=== PATIENT | male | born 1975 | race African-American/Black ===

== ENCOUNTER 2017-10-10 17:38 | Emergency (ER) | payer OTHER, BC | END 2017-10-10 20:03 | disposition home or self-care (01) | LOC: ER 17:38 | DX: M25.511 Pain in right shoulder (principal); M25.512 Pain in left shoulder; R07.89 Other chest pain; V43.52XA Car driver injured in collision with other type car in traffic accident, initial encounter; Y93.I9 Activity, other involving external motion; Y92.410 Unspecified street and highway as the place of occurrence of the external cause; Y99.8 Other external cause status | CPT/HCPCS: 71020; 73030; 99284 ==

== ENCOUNTER → 2021-02-07 | Outpatient (CLI) | payer BC ==
[2017-10-10 18:06] VITALS: BP 156/86
[~2021-02-07] MED LIST: CYCL10TA2 PO; DICL50TA4 PO; OXYC1TAB15 PO
--- NOTE | 2021-02-07 12:00 | RAD ---
EXAM: Head and cervical spine CT without contrast. HISTORY: Headache. Nerve root impingement. TECHNIQUE: Computed tomographic images of the head and cervical spine were obtained without contrast. *One or more of the following individualized dose reduction techniques were utilized for this examina tion: 1. Automated exposure control. 2. Adjustment of the mA and/or kV according to patient size. 3. Use of iterative reconstruction technique. COMPARISON: None. FINDINGS: Head: There is no hemorrhage. There is no mass effect or midline shift. There is no hydrocephalus. Th e rosales-white matter differentiation pattern is intact. There is ossification along the anterior falx. The orbits are unremarkable. There is mild maxillary sinus mucosal thickening. The mastoid air cells are clear. There are suboccipital cardiotomy changes. The posterior arch of C1 has been resected. Th ere are low-lying cerebellar tonsils, favoring postoperative change for Chiari decompression. Cervical spine: There is no listhesis. The vertebral bodies are normal in height and the disc spaces are preserved. There is mild endplate remodeling and facet and uncovertebral arthropathy at multiple levels. This is associated with mild right foraminal stenosis C4-C5. No severe foraminal or central c anal stenosis is seen. The airways midline and widely patent. IMPRESSION: 1. No acute intracranial finding or evidence of acute cervical spine trauma. 2. Suboccipital craniotomy and posterior arch of C1 resection, possibly due to Chiari decompression g iven the presence of low lying cerebellar tonsils. Correlate with prior imaging and surgical history. 3. Minimal degenerative change involving the cervical spine, described above. There is associated mil d right foraminal stenosis at C4-C5. Electronically signed by: Betsy Bradshaw MD (02/07/2021 11:58 AM) [id number]
--- NOTE | 2021-02-07 12:45 | RAD ---
EXAM: Abdomen and pelvis CT without intravenous contrast. HISTORY: Flank pain. TECHNIQUE: Computed tomographic images of the abdomen and pelvis were obtained without contrast. Mult iplanar reformatting was performed. *One or more of the following individualized dose reduction techniques were utilized for this examina tion: 1. Automated exposure control. 2. Adjustment of the mA and/or kV according to patient size. 3. Use of iterative reconstruction technique. COMPARISON: None. FINDINGS: Evaluation of the lower thorax demonstrates no infiltrate or pleural effusion. No hepatic l esion is seen on this noncontrast exam. The gallbladder, pancreas, spleen and adrenal glands are unre markable. There is no hydronephrosis. There are multiple nonobstructing right renal stones measuring up to 3 mm . There is a 2 mm nonobstructing stone within the upper pole the left kidney. No solid or cystic angel l lesion is seen on this noncontrast exam. There is no appendicitis. There is no abnormal bowel wall thickening. The bladder and prostate are un remarkable. The aorta is normal in caliber. There is stranding within the root of mesentery and there are multiple enlarged mesenteric lymph nodes to left of midline. The largest of these lymph nodes me asures 2.1 cm in long axis. There is no suspicious osseous lesion. There are multiple degenerative changes throughout the spine, predominantly at the lumbosacral junction. IMPRESSION: 1. Right greater than left nephrolithiasis. There is no evidence of an obstructing stone or hydroneph rosis. 2. Mesenteric stranding and multiple enlarged mesenteric lymph nodes to left of midline. This can be seen with mesenteric adenitis and mesenteric panniculitis. This is not clearly within limits to sugge st underlying neoplasm. Electronically signed by: Betsy Bradshaw MD (02/07/2021 12:42 PM) [id number]
== END ==
LOC: CT 11:24
PROVIDERS: ATTEND Family Medicine
DX: G44.89 Other headache syndrome (principal); N20.0 Calculus of kidney; M47.812 Spondylosis without myelopathy or radiculopathy, cervical region
CPT/HCPCS: 70450; 72125; 74176